=== PATIENT | male | born 1930 | race Caucasian/White ===

== ENCOUNTER 2017-03-17 12:13 | Emergency (ER) | payer OTHER ==
[~2017-03-17] VITALS: Ht 185.4 cm; Wt 104.3 kg
[2017-03-17] MEDS ORDERED: DIPHTH,PERTUSS(ACELL),TET TOX 0.5 ML DISP.SYRIN. VAX IM ONE (12:30)
--- NOTE | 2017-03-17 12:31 | PHYS DOC ---
Adult General Chief Complaint Chief Complaint: fall HPI HPI Patient is a 86 year old male who comes by EMS from home after he tripped and fell down some stairs. He was going from the house and the garage, down a couple of steps. He landed on a concrete surface. He does not believe he struck his head and had no loss of consciousness. At this time he denies any pain at all. Patient lives alone. He walks with a cane. He said he did not feel faint, he just tripped and fell. Last tetanus unknown Review of Systems Review of Systems Constitutional: Denies fever or chills [] Eyes: Denies change in visual acuity, redness, or eye pain [] HENT: Denies nasal congestion or sore throat [] Respiratory: Denies cough or shortness of breath [] Cardiovascular: Denies chest pain GI: Denies abdominal pain, nausea, vomiting, bloody stools or diarrhea [] : Denies dysuria or hematuria [] Musculoskeletal: Denies back pain or joint pain [] Integument: Skin injuries as noted in physical exam Neurologic: Denies headache, focal weakness or sensory changes [] Current Medications Current Medications Current Medications Medications (Trade) Dose Ordered Sig/Kennedy Start Time Stop Time Status Last Admin Dose Admin Diphtheria/ Tetanus/Acell Pertussis (Boostrix) 0.5 ml ONCE ONCE 03/17/17 12:30 03/17/17 12:35 DC 03/17/17 13:04 0.5 ML Lidocaine HCl 10 ml 1X ONCE 03/17/17 13:15 03/17/17 13:16 DC 03/17/17 13:28 10 ML Lidocaine HCl (Xylocaine-Mpf 1% Vial) 2 ml 1X ONCE 03/17/17 13:00 03/17/17 13:01 DC 03/17/17 13:02 2 ML Neomycin/ Polymyxin/ Bacitracin (Triple Antibiotic Ointment) 1 pkt STK-MED ONCE 03/17/17 13:31 03/17/17 13:32 DC Allergies Allergies Allergies Coded Allergies Type Severity Reaction Last Updated Verified peanut oil Allergy Unknown 03/17/17 Yes Physical Exam Physical Exam Constitutional: Well developed, well nourished, no acute distress, non-toxic appearance. Alert, mentating normally, appropriate. HENT: Normocephalic, bilateral external ears normal, oropharynx moist, no oral exudates, nose with a very small amount of dried blood in the left Ede. Superficial abrasion over the left cheek. No scalp or forehead injuries noted. Eyes: conjunctiva normal, no discharge. [] Neck: Normal range of motion, no tenderness, supple, no stridor. [] Cardiovascular:Heart rate regular rhythm, no murmur [] Lungs & Thorax: Bilateral breath sounds clear to auscultation [] Abdomen: Bowel sounds normal, soft, no tenderness, no masses, no pulsatile masses. [] Skin: Warm, dry, no erythema, no rash. [] Back: No tenderness, no CVA tenderness. [] Extremities: Left anterior shoulder has a superficial abrasion. Shoulder joint is nontender with full range of motion. Remainder of left upper extremity without tenderness or deformity. Left hand has a superficial abrasion over the fourth and fifth MCP area, nontender with no swelling or deformity, full range of motion. Left knee has a deep puncture type laceration over the patella. No foreign body visible. The patient is able to actively extend his leg at the knee , quadriceps patellar tendon intact. There is no knee effusion, no swelling, no tenderness to palpation. Remainder of left lower extremity without tenderness or deformity. Neurologic: Alert and oriented X 3, normal motor function, normal sensory function, no focal deficits noted. [] Current Patient Data Vital Signs Vital Signs Date Time Temp Pulse Resp B/P (MAP) Pulse Ox O2 Delivery O2 Flow Rate FiO2 03/17/17 13:48 62 17 130/65 (86) 97 Room Air 03/17/17 12:34 97.7 97.7 EKG EKG [] Radiology/Procedures Radiology/Procedures CT scan of the head read by the radiologist. No acute findings. Two-view x-ray of the left knee read by me. No acute findings. No foreign body noted. Procedure: Repair of left knee laceration by me The laceration was prepped with Betadine, anesthetized with 1% lidocaine plain, irrigated with normal saline using a splash shield. It is a puncture/crush type laceration. Laceration was explored, no foreign body. The laceration was sutured using 2 subcutaneous sutures of 4-0 Vicryl and 3 vertical mattress sutures of 4-0 nylon. The laceration was bandaged by nursing staff with antibiotic ointment, nonadherent, gauze, gauze wrap covered by an James wrap. [] Course & Med Decision Making Course & Med Decision Making Pertinent Labs and Imaging studies reviewed. (See chart for details) 86-year-old man had a trip and fall down some stairs and landed on a concrete surface. He has abrasions to the face, left shoulder, left hand, and a abrasion/ laceration to the left knee. No evidence of specific head injury but he did sustain a pretty significant fall and he has a cheek abrasion so we will do a CT scan of his head as well as an x-ray of the left knee, he is agreeable to that plan. X-rays negative, laceration was repaired and dressed, patient remained stable with normal mental status in the emergency department. His brother is coming to pick him up. See instructions for plan. [] Dragon Disclaimer Dragon Disclaimer This electronic medical record was generated, in whole or in part, using a voice recognition dictation system. Departure Departure Impression: Primary Impression: Fall down stairs Additional Impression: Laceration of left knee Disposition: 01 HOME, SELF-CARE Condition: STABLE Referrals: MARCELINO MONTES DE OCA MD (PCP) Patient Instructions: Head Injury, Adult, [id number], Laceration Care, Adult , [id number] Additional Instructions: You will be more stiff and sore tomorrow and for 2 or 3 days. For pain, if needed, take Tylenol, generic is acetaminophen, take as directed. Apply ice to areas of pain and swelling. Leave the bandage on your knee for 48 hours if possible, then you may remove, wash gently once a day with a washcloth and soap and water, pat dry, re- bandage. After you wash and dry, apply antibiotic ointment to cover the open area. I recommend that you buy large "sensitive skin" bandages at the [facility], the adhesive will not be as irritating to your skin, either that or wrap without using tape or adhesive as we discussed. The stitches need to be removed in about 14 days, call your doctor's office for an appointment to get that done. Problem Qualifiers BRET HUNG MD March 17, 2017 12:31
--- NOTE | 2017-03-17 12:51 | RAD ---
EXAM: Left knee, 3 views. HISTORY: Pain. COMPARISON: 12/06/2015. FINDINGS: Frontal, lateral and oblique views of the left knee are obtained. There is a chronic proximal fibular metaphyseal fracture with surrounding callus formation. There is chronic appearing ossific density along the medial aspect of the medial femoral condyle. No acute fracture is seen. There are surgical clips within the medial left knee soft tissues. There are vascular calcifications. There is no significant joint effusion. IMPRESSION: 1. Healed proximal fibular fracture and chronic appearing ossification along the medial femoral condyle. 2. No acute osseous finding.
--- NOTE | 2017-03-17 12:55 | RAD ---
EXAM: Head CT without contrast. HISTORY: Fall. TECHNIQUE: Computed tomographic images of the head were obtained without contrast. COMPARISON: None. FINDINGS: There is no acute or subacute extra-axial or intraparenchymal hemorrhage. There is no mass effect or midline shift. There is no hydrocephalus. There are scattered areas of hypodensity within the cerebral white matter, a nonspecific finding likely due to chronic small vessel disease. There is cerebral volume loss. The visualized portions of the orbits, paranasal sinuses and mastoid air cells are unremarkable. No suspicious calvarial lesion is seen. IMPRESSION: 1. No acute intracranial finding. 2. Decreased attenuation within the cerebral white matter, a nonspecific finding likely due to chronic small vessel disease. PQRS Compliance Statement: One or more of the following individualized dose reduction techniques were utilized for this examination: 1. Automated exposure control 2. Adjustment of the mA and/or kV according to patient size 3. Use of iterative reconstruction technique
[2017-03-17] MEDS ORDERED: LIDOCAINE 1% Multi-Dose 20 ML VIAL. ID ONE (13:00)
[2017-03-17] MEDS ORDERED: LIDOCAINE 1% PF 2 ML VIAL. INJ ONE (13:00)
[2017-03-17] MEDS ORDERED: LIDOCAINE 1% 20 ML VIAL. ID ONE (13:15)
[2017-03-17] MEDS ORDERED: NEOMY/BACITR/POLYMYXIN OINT PACKET. TP ONE (13:31)
[2017-03-17 13:48] VITALS: BP 130/65
== END 2017-03-17 14:04 | disposition home or self-care (01) ==
LOC: ER 12:13
DX: S81.012A Laceration without foreign body, left knee, initial encounter (principal); S00.81XA Abrasion of other part of head, initial encounter; S40.212A Abrasion of left shoulder, initial encounter; S60.512A Abrasion of left hand, initial encounter; Z91.010 Allergy to peanuts; W10.9XXA Fall (on) (from) unspecified stairs and steps, initial encounter; Y93.89 Activity, other specified; Y92.89 Other specified places as the place of occurrence of the external cause; Y99.8 Other external cause status
CPT/HCPCS: 12002; 70450; 73562; 90471; 90715; 99284-25